=== PATIENT | female | born 1980 | race Caucasian/White ===

== ENCOUNTER 2016-11-22 14:30 | Emergency (ER) | payer MEDICAID ==
[2016-11-22] MEDS ORDERED: Lidocaine 2% Viscous Solution 15 ML Cup PO ONE (14:55)
[2016-11-22] MEDS ORDERED: Benzocaine 20% Topical Spray UD MUCMEM ONE (14:55)
--- NOTE | 2016-11-22 14:59 | EDM.PDOC ---
ED HPI GENERAL MEDICAL PROBLEM - General Chief Complaint: General Stated Complaint: POSSIBLY INFECTION IN MOUTH Time Seen by Provider: 11/22/16 14:45 Source of Information: Reports: Patient History Limitations: Reports: No Limitations - History of Present Illness INITIAL COMMENTS - FREE TEXT/NARRATIVE: HISTORY AND PHYSICAL: History of present illness: [Patient comes to the emergency room complaining of dental pain that has been present for the past couple of days. She complains of swelling and pain to her right cheek. Has a history of abscessed teeth and dental caries and infections. Has been unable to afford the cost of a dental appointment. She's been taking Aleve without any improvement of her symptoms. She denies fever and chills. No sore throat headache or eye pain. No chest pain shortness of breath or difficulty breathing. She does not smoke cigarettes but admits to smoking marijuana regularly. Review of systems: As per history of present illness and below otherwise all systems reviewed and negative. Past medical history: As per history of present illness and as reviewed below otherwise noncontributory. Surgical history: As per history of present illness and as reviewed below otherwise noncontributory. Social history: No reported history of drug or alcohol abuse. Family history: As per history of present illness and as reviewed below otherwise noncontributory. Physical exam: HEENT: Atraumatic, normocephalic. TMs are pearly jordan and without erythema bilaterally. Nares are patent, no erythema. Oral mucous membranes are pink and moist. Area of swelling and erythema above tooth #12, abscess is appreciated. Lungs: Clear to auscultation, breath sounds equal bilaterally. Heart: S1S2. Neuro: Exam nonfocal. Impression: [Dental abscess] Plan: [Dental balls given in the ER. Rx sent to [facility] for amoxicillin 500 mg #30 sig 1 by mouth 3 times a day 0 refills. Encouraged her to establish with a local dentist for continued care. Alternate Tylenol and ibuprofen as needed for continued discomfort. She is in agreement with today's plan.] Definitive disposition and diagnosis as appropriate pending reevaluation and review of above. Dental Pain Score (Numeric/FACES): 10 - Related Data Allergies Allergy/AdvReac Type Severity Reaction Status Date / Time No Known Allergies Allergy Verified 11/22/16 14:38 Home Meds: Home Meds . [No Known Home Meds] 11/22/16 [History] Past Medical History - Past Health History Medical/Surgical History: Denies Medical/Surgical History Social & Family History - Family History Family Medical History: Noncontributory - Tobacco Use Smoking Status *Q: Never Smoker - Recreational Drug Use Recreational Drug Use: Yes Drug Use in Last 12 Months: Yes Recreational Drug Type: Reports: Marijuana/Hashish Recreational Drug Use Frequency: Daily ED ROS GENERAL - Review of Systems Review Of Systems: ROS reveals no pertinent complaints other than HPI. ED EXAM, GENERAL - Physical Exam Exam: See Below Course - Vital Signs Last Recorded V/S: Last Vital Signs Temp 97.4 F 11/22/16 14:38 Pulse 78 11/22/16 15:16 Resp 18 11/22/16 15:16 BP 122/87 11/22/16 15:16 Pulse Ox 97 11/22/16 15:16 - Orders/Labs/Meds Meds: Medications Discontinued Medications Generic Name Dose Route Start Last Admin Trade Name Freq PRN Reason Stop Dose Admin Benzocaine 2 each 11/22/16 14:55 11/22/16 15:15 Hurricaine One 20% MUCMEM 11/22/16 14:56 2 each ONETIME ONE Administration Lidocaine HCl 15 ml 11/22/16 14:55 11/22/16 15:16 Xylocaine 2% Viscous PO 11/22/16 14:56 15 ml ONETIME ONE Administration Departure - Departure Time of Disposition: 15:00 Disposition: Home, Self-Care 01 Condition: Good Clinical Impression: Dental abscess - Discharge Information Instructions: Dental Abscess, [id number] Referrals: PCP,None [Primary Care Provider] - Forms: ED Department Discharge Additional Instructions: The following information is given to patients seen in the emergency department who are being discharged to home. This information is to outline your options for follow-up care. We provide all patients seen in our emergency department with a follow-up referral. The need for follow-up, as well as the timing and circumstances, are variable depending upon the specifics of your emergency department visit. If you don't have a primary care physician on staff, we will provide you with a referral. We always advise you to contact your personal physician following an emergency department visit to inform them of the circumstance of the visit and for follow-up with them and/or the need for any referrals to a consulting specialist. The emergency department will also refer you to a specialist when appropriate. This referral assures that you have the opportunity for follow-up care with a specialist. All of these measure are taken in an effort to provide you with optimal care, which includes your follow-up. Under all circumstances we always encourage you to contact your private physician who remains a resource for coordinating your care. When calling for follow-up care, please make the office aware that this follow-up is from your recent emergency room visit. If for any reason you are refused follow-up, please contact the [facility] emergency department at and asked to speak to the emergency department charge nurse. See list of local dentists. Follow-up with a local dentist within the next 4-5 days. Orajel is available at [facility] [id number] he may use this as needed for dental pain. Tylenol alternating with ibuprofen as needed for discomfort. Follow packaging instructions for dosing information. Return to ER as needed as discussed.
[2016-11-22 18:06] VITALS: BP 122/87
== END 2016-11-22 15:16 | disposition home or self-care (01) ==
LOC: MW.ED 14:30
DX: K04.7 Periapical abscess without sinus (principal)
CPT/HCPCS: 99282; A9270; 99283

== ENCOUNTER 2016-12-24 14:17 | Emergency (ER) | payer MEDICAID ==
[2016-12-24 14:31] VITALS: BP 110/69
--- NOTE | 2016-12-24 14:36 | EDM.PDOC ---
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 Past medical history: As per history of present illness and as reviewed below otherwise noncontributory. Surgical history: As per history of present illness and as reviewed below otherwise noncontributory. Social history: No reported history of drug or alcohol abuse. Family history: As per history of present illness and as reviewed below otherwise noncontributory. Physical exam: Alert and oriented female answering questions appropriately she is nontoxic in appearance. HEENT: Atraumatic, normocehpalic, pupils reactive, negative for conjunctival pallor or scleral icterus, mucous membranes moist, throat clear, neck supple, nontender, trachea midline. Lungs: Clear to auscultation, breath sounds equal bilaterally, chest non tender. Heart: S1S2, regular, negative for clicks, rubs, or JVD. Abdomen: Soft, nondistended, nontender. Negative for masses or hepatossplenmegaly. Negative for costovertebral tenderness. Pelvis: Stable nontender. Genitourinary: Deferred. Rectal: Deferred Extremities: Atraumatic, negative for cords or calf pain. Tenderness and mild edema noted to the medial right knee. Walks without any difficulty. Positive Tinel's and positive Phalen's after 30 seconds Neurovascular unremarkable. Neuro: Awake, alert, oriented. Cranial nerves II through XII unremarkable. Cerebellum unremarkable. Motor and sensory unremarkable throughout. Exam nonfocal. Diagnostics: [Phalen's maneuver Tinel's] Therapeutics: [] Impression: [Bilateral carpal tunnel syndrome] Plan: [Refer to Dr. Cori England for further workup Continue with anti-inflammatories Cockup wrist splints will be applied] Definitive disposition and diagnosis as appropriate pending reevaluation and review of above. Onset: Today, Sudden Quality: Reports: Ache, Throbbing Severity: Severe Improves with: Reports: None Worsens with: Reports: Movement Generalized Pain Score (Numeric/FACES): 5 - Related Data Allergies Allergy/AdvReac Type Severity Reaction Status Date / Time No Known Allergies Allergy Verified 12/24/16 14:34 Home Meds: Home Meds . [No Known Home Meds] 11/22/16 [History] Past Medical History - Past Health History Medical/Surgical History: Denies Medical/Surgical History Social & Family History - Family History Family Medical History: Noncontributory - Tobacco Use Smoking Status *Q: Never Smoker - Recreational Drug Use Recreational Drug Use: Yes Drug Use in Last 12 Months: Yes Recreational Drug Type: Reports: Marijuana/Hashish Recreational Drug Use Frequency: Daily ED ROS GENERAL - Review of Systems Review Of Systems: ROS reveals no pertinent complaints other than HPI. ED EXAM, GENERAL - Physical Exam Exam: See Below Course - Vital Signs Last Recorded V/S: Last Vital Signs Temp 36.4 C 12/24/16 14:30 Pulse 88 12/24/16 14:30 Resp 18 12/24/16 14:30 BP 110/69 12/24/16 14:30 Pulse Ox 98 12/24/16 14:30 Departure - Departure Time of Disposition: 14:56 Disposition: Home, Self-Care 01 Condition: Good Clinical Impression: Carpal tunnel syndrome on both sides - Discharge Information Referrals: PCP,None [Primary Care Provider] - Juliana England MD [Physician] - Additional Instructions: The following information is given to patients seen in the emergency department who are being discharged to home. This information is to outline your options for follow-up care. We provide all patients seen in our emergency department with a follow-up referral. The need for follow-up, as well as the timing and circumstances, are variable depending upon the specifics of your emergency department visit. If you don't have a primary care physician on staff, we will provide you with a referral. We always advise you to contact your personal physician following an emergency department visit to inform them of the circumstance of the visit and for follow-up with them and/or the need for any referrals to a consulting specialist. The emergency department will also refer you to a specialist when appropriate. This referral assures that you have the opportunity for followup care with a specialist. All of these measure are taken in an effort to provide you with optimal care, which includes your followup. Under all circumstances we always encourage you to contact your private physician who remains a resource for coordinating your care. When calling for followup care, please make the office aware that this follow-up is from your recent emergency room visit. If for any reason you are refused follow-up, please contact the [facility] emergency department at and asked to speak to the emergency department charge nurse. Note will be given to be off work Follow-up with referral to Dr. Cori England [facility] Specialty Care - Plastic Surgery Professional Building [address] [place] [address], [address] [place] [address] Please call for an appointment Splints have been applied to your wrists please keep these on at night
== END 2016-12-24 15:11 | disposition home or self-care (01) ==
LOC: MW.ED 14:17
DX: G56.03 Carpal tunnel syndrome, bilateral upper limbs (principal)
CPT/HCPCS: 99282; 99283

== ENCOUNTER 2017-06-30 12:21 | Emergency (ER) | payer MEDICAID ==
[2017-06-30] MEDS ORDERED: Pantoprazole 40 MG Vial IVPUSH ONE (12:41)
[2017-06-30] MEDS ORDERED: Sodium Chloride 0.9% 1,000 ML IV ONE (12:41)
[2017-06-30] MEDS ORDERED: Alum Hydrox/Mag Hydrox/Simeth 15 ML, Metoclopramide 5 MG, Lidocaine 2% 5 ML PO ONE ×3 (12:42)
[2017-06-30] MEDS ORDERED: Sodium Chloride 0.9% 10 ML Syringe FLUSH PRN (12:42)
[2017-06-30] MEDS ORDERED: Sodium Chloride 0.9% 2.5 ML Syringe FLUSH PRN (12:42)
[2017-06-30 12:44] VITALS: BP 139/91
--- NOTE | 2017-06-30 12:44 | EDM.PDOC ---
<KavyaJames Doss - Last Filed: 06/30/17 12:42> ED HPI GENERAL MEDICAL PROBLEM - General Chief Complaint: Gastrointestinal Problem Stated Complaint: ABDOMINAL PAIN Time Seen by Provider: 06/30/17 12:38 - History of Present Illness INITIAL COMMENTS - FREE TEXT/NARRATIVE: HISTORY AND PHYSICAL: History of present illness: Patient 37-year-old white female presents with concern of abdominal pain has been over last week she states this is quite severe and occurs after eating she states she's also had dark stools she denies vomiting denies chest pain shortness of breath she denies any prior abdominal surgery she is a smoker she denies alcohol abuse or drugs Review of systems: As per history of present illness and below otherwise all systems reviewed and negative. Past medical history: As per history of present illness and as reviewed below otherwise noncontributory. Surgical history: As per history of present illness and as reviewed below otherwise noncontributory. Social history: No reported history of drug or alcohol abuse. Family history: As per history of present illness and as reviewed below otherwise noncontributory. Physical exam: HEENT: Atraumatic, normocephalic, pupils reactive, negative for conjunctival pallor or scleral icterus, mucous membranes moist, throat clear, neck supple, nontender, trachea midline. Lungs: Clear to auscultation, breath sounds equal bilaterally, chest nontender. Heart: S1S2, regular, negative for clicks, rubs, or JVD. Abdomen: Soft, nondistended, no localized tenderness no rebound no guarding. Negative for masses or hepatosplenomegaly. Negative for costovertebral tenderness. Pelvis: Stable nontender. Genitourinary: Deferred. Rectal: Deferred. Extremities: Atraumatic, negative for cords or calf pain. Neurovascular unremarkable. Neuro: Awake, alert, oriented. Cranial nerves II through XII unremarkable. Cerebellum unremarkable. Motor and sensory unremarkable throughout. Exam nonfocal. Diagnostics: CBC CMP lipase hCG chest x-ray type and screen ultrasound right upper quadrant Therapeutics: Saline 1 L bolus Protonix 80 mg IV GI cocktail Impression: #1 abdominal pain Definitive disposition and diagnosis as appropriate pending reevaluation and review of above. - Related Data Allergies Allergy/AdvReac Type Severity Reaction Status Date / Time No Known Allergies Allergy Verified 06/30/17 12:44 Home Meds: Home Meds Citalopram Hydrobromide [Celexa] 06/30/17 [History] busPIRone [Buspar] 06/30/17 [History] Past Medical History - Past Health History Medical/Surgical History: Denies Medical/Surgical History Social & Family History - Family History Family Medical History: Noncontributory - Tobacco Use Smoking Status *Q: Never Smoker Second Hand Smoke Exposure: No - Caffeine Use Caffeine Use: Reports: Coffee - Alcohol Use Days Per Week of Alcohol Use: 1 Number of Drinks Per Day: 10 Total Drinks Per Week: 10 - Recreational Drug Use Recreational Drug Use: Yes Drug Use in Last 12 Months: Yes Recreational Drug Type: Reports: Marijuana/Hashish Recreational Drug Use Frequency: Daily ED ROS GENERAL - Review of Systems Review Of Systems: ROS reveals no pertinent complaints other than HPI. ED EXAM, GENERAL - Physical Exam Exam: See Below (See dictation) Course - Vital Signs Last Recorded V/S: Last Vital Signs Temp 98.0 F 06/30/17 12:42 Pulse 71 06/30/17 12:42 Resp 22 H 06/30/17 12:42 BP 139/91 H 06/30/17 12:42 Pulse Ox 100 06/30/17 12:42 - Orders/Labs/Meds Orders: Active Orders 24 hr Category Date Time Status Abdomen Ltd [US] Stat Exams 06/30/17 12:41 Taken Chest 1V Frontal [CR] Stat Exams 06/30/17 12:41 Taken Sodium Chloride 0.9% [Saline Flush] Med 06/30/17 12:42 Active 10 ml FLUSH ASDIRECTED PRN Sodium Chloride 0.9% [Saline Flush] Med 06/30/17 12:42 Active 2.5 ml FLUSH ASDIRECTED PRN Saline Lock Insert [OM.PC] Stat Oth 06/30/17 12:41 Ordered Medication Orders Sodium Chloride (Saline Flush) 10 ml FLUSH ASDIRECTED PRN PRN Reason: Keep Vein Open Last Admin: 06/30/17 13:28 Dose: 10 ml Sodium Chloride (Saline Flush) 2.5 ml FLUSH ASDIRECTED PRN PRN Reason: Keep Vein Open Last Admin: 06/30/17 13:28 Dose: 2.5 ml Labs: Laboratory Tests 06/30/17 06/30/17 06/30/17 Range/Units 13:15 13:15 13:15 WBC 12.60 H (4.0-11.0) K/uL RBC 4.68 (4.30-5.90) M/uL Hgb 14.9 (12.0-16.0) g/dL Hct 43.9 (36.0-46.0) % MCV 93.8 (80.0-98.0) fL MCH 31.8 (27.0-32.0) pg MCHC 33.9 (31.0-37.0) g/dL RDW Std Deviation 45.4 (28.0-62.0) fl RDW Coeff of Anabella 13 (11.0-15.0) % Plt Count 268 (150-400) K/uL MPV 9.30 (7.40-12.00) fL Neut % (Auto) 69.3 (48.0-80.0) % Lymph % (Auto) 17.7 (16.0-40.0) % Newberry % (Auto) 4.5 (0.0-15.0) % Eos % (Auto) 8.3 H (0.0-7.0) % Baso % (Auto) 0.2 (0.0-1.5) % Neut # (Auto) 8.7 H (1.4-5.7) K/uL Lymph # (Auto) 2.2 (0.6-2.4) K/uL Newberry # (Auto) 0.6 (0.0-0.8) K/uL Eos # (Auto) 1.0 H (0.0-0.7) K/uL Baso # (Auto) 0.0 (0.0-0.1) K/uL Nucleated RBC % 0.0 /100WBC Nucleated RBCs # 0 K/uL INR 1.08 Sodium 138 (136-145) mmol/L Potassium 4.5 (3.5-5.1) mmol/L Chloride 102 (98-107) mmol/L Carbon Dioxide 27.2 (21.0-32.0) mmol/L BUN 11 (7.0-18.0) mg/dL Creatinine 0.6 (0.6-1.0) mg/dL Est Cr Clr Drug Dosing 117.76 mL/min Estimated GFR (MDRD) > 60.0 ml/min Glucose 98 (74-106) mg/dL Calcium 8.9 (8.5-10.1) mg/dL Total Bilirubin 0.3 (0.2-1.0) mg/dL AST 20 (15-37) IU/L ALT 22 (14-63) IU/L Alkaline Phosphatase 82 (46-116) U/L Total Protein 7.5 (6.4-8.2) g/dL Albumin 4.0 (3.4-5.0) g/dL Globulin 3.5 (2.0-3.5) g/dL Albumin/Globulin Ratio 1.1 L (1.3-2.8) Lipase 178 (73-393) U/L HCG, Qual (NEG) Blood Type Antibody Screen 06/30/17 06/30/17 Range/Units 13:15 13:15 WBC (4.0-11.0) K/uL RBC (4.30-5.90) M/uL Hgb (12.0-16.0) g/dL Hct (36.0-46.0) % MCV (80.0-98.0) fL MCH (27.0-32.0) pg MCHC (31.0-37.0) g/dL RDW Std Deviation (28.0-62.0) fl RDW Coeff of Anabella (11.0-15.0) % Plt Count (150-400) K/uL MPV (7.40-12.00) fL Neut % (Auto) (48.0-80.0) % Lymph % (Auto) (16.0-40.0) % Newberry % (Auto) (0.0-15.0) % Eos % (Auto) (0.0-7.0) % Baso % (Auto) (0.0-1.5) % Neut # (Auto) (1.4-5.7) K/uL Lymph # (Auto) (0.6-2.4) K/uL Newberry # (Auto) (0.0-0.8) K/uL Eos # (Auto) (0.0-0.7) K/uL Baso # (Auto) (0.0-0.1) K/uL Nucleated RBC % /100WBC Nucleated RBCs # K/uL INR Sodium (136-145) mmol/L Potassium (3.5-5.1) mmol/L Chloride (98-107) mmol/L Carbon Dioxide (21.0-32.0) mmol/L BUN (7.0-18.0) mg/dL Creatinine (0.6-1.0) mg/dL Est Cr Clr Drug Dosing mL/min Estimated GFR (MDRD) ml/min Glucose (74-106) mg/dL Calcium (8.5-10.1) mg/dL Total Bilirubin (0.2-1.0) mg/dL AST (15-37) IU/L ALT (14-63) IU/L Alkaline Phosphatase (46-116) U/L Total Protein (6.4-8.2) g/dL Albumin (3.4-5.0) g/dL Globulin (2.0-3.5) g/dL Albumin/Globulin Ratio (1.3-2.8) Lipase (73-393) U/L HCG, Qual NEGATIVE (NEG) Blood Type A POSITIVE Antibody Screen NEGATIVE Meds: Medications Generic Name Dose Route Start Last Admin Trade Name Freq PRN Reason Stop Dose Admin Sodium Chloride 10 ml 06/30/17 12:42 06/30/17 13:28 Saline Flush FLUSH 10 ml ASDIRECTED PRN Administration Keep Vein Open Sodium Chloride 2.5 ml 06/30/17 12:42 06/30/17 13:28 Saline Flush FLUSH 2.5 ml ASDIRECTED PRN Administration Keep Vein Open Discontinued Medications Generic Name Dose Route Start Last Admin Trade Name Joseq PRN Reason Stop Dose Admin Al Hydroxide/Mg Hydroxide 15 0 ml 06/30/17 12:42 06/30/17 13:25 ml/ Metoclopramide HCl 5 mg/ PO 06/30/17 12:43 25 each Lidocaine HCl 5 ml ONETIME ONE Administration Sodium Chloride 1,000 mls @ 999 mls/hr 06/30/17 12:41 06/30/17 13:26 Normal Saline IV 06/30/17 13:41 999 mls/hr STAT ONE Administration Pantoprazole Sodium 80 mg 06/30/17 12:41 06/30/17 13:25 Protonix Iv IVPUSH 06/30/17 12:42 80 mg .BOLUS ONE Administration Departure - Departure Disposition: Home, Self-Care 01 Clinical Impression: Abdominal pain - Discharge Information Instructions: Abdominal Pain, Adult, [id number] Referrals: PCP,None [Primary Care Provider] - Forms: ED Department Discharge Additional Instructions: My general discharge The following information is given to patients seen in the emergency department who are being discharged to home. This information is to outline your options for follow-up care. We provide all patients seen in our emergency department with a follow-up referral. The need for follow-up, as well as the timing and circumstances, are variable depending upon the specifics of your emergency department visit. If you don't have a primary care physician on staff, we will provide you with a referral. We always advise you to contact your personal physician following an emergency department visit to inform them of the circumstance of the visit and for follow-up with them and/or the need for any referrals to a consulting specialist. The emergency department will also refer you to a specialist when appropriate. This referral assures that you have the opportunity for follow-up care with a specialist. All of these measure are taken in an effort to provide you with optimal care, which includes your follow-up. Under all circumstances we always encourage you to contact your private physician who remains a resource for coordinating your care. When calling for follow-up care, please make the office aware that this follow-up is from your recent emergency room visit. If for any reason you are refused follow-up, please contact the [facility] Emergency Department at and asked to speak to the emergency department charge nurse. [facility] Specialty Care - General Surgery Professional Building [address] [place] [address], [address] [place] [address] 1. Protonix has been prescribed for you. 2. Please follow-up with the general surgeon next week. Return to the ED as needed and as discussed. <Shey Wooten E - Last Filed: 06/30/17 15:47> Departure - Departure Time of Disposition: 15:46
[2017-06-30 14:26] LABS: CHLORIDE,CL 102 mmol/L (98-107); SODIUM,NA 138 mmol/L (136-145)
--- NOTE | 2017-07-01 10:24 | US ---
EXAM DATE: 06/30/17 PATIENT'S AGE: 37 Patient: YANELY DILLARD Facility: [place], [place] Site . Site : 1980 Study: US Abdomen [id number] 2:16:08 PM Ordering Physician: Kavya Ramirez Final Report: INDICATION: Right upper quadrant pain COMPARISON: none TECHNIQUE: Real time jordan scale imaging and color Doppler analysis was performed of the right upper quadrant. FINDINGS: The patient`s liver is of normal size and has uniform echogenicity. There is a normal appearance of the hepatic IVC and proximal abdominal aorta. There is no evidence of ascites. The pancreas appears normal. The gallbladder is of normal size and there is no evidence of intraluminal stones or sludge. The gallbladder wall measures 1.6 mm in thickness. Although there is no evidence of edema within the gallbladder wall, the rug cutter commented the patient was focally tender over the gallbladder during the exam. The common bile duct is of normal size and measures 5 mm in diameter at the level of the jayesh hepatis. The right kidney measures 12.8 cm in length. There is no evidence of a stone or hydronephrosis within the right kidney. IMPRESSION: Gallbladder tenderness but without evidence of cholelithiasis or edema within the gallbladder wall. Findings could suggest potential acalculous cholecystitis. Consider radionuclide hepatobiliary imaging for further evaluation. Dictated by James Mcgrath MD @ Jun 30 2017 2:31PM (Electronic Signature) Report Signed by Proxy. RONEL
--- NOTE | 2017-07-01 10:27 | CR ---
EXAM DATE: 06/30/17 PATIENT'S AGE: 37 Patient: YANELY DILLADR Facility: [place], [place] Site . Site : 1980 Study: XRay Chest [id number] 2:19:59 PM Ordering Physician: Kavya Ramirez Final Report: Indication: Diffuse abdominal pain Technique: Chest 1 view Comparison: None Findings/Impression: Cardiovascular and mediastinum: Heart size and vasculature are normal in caliber and appearance. Mediastinum is within normal limits. Lungs and pleural space: Lungs are clear. No sign of infiltrate or mass. No sign of pleural effusion. No pneumothorax. Bones and soft tissues: No significant findings. Dictated by Yas Alcantara MD @ Jun 30 2017 2:37PM (Electronic Signature) Report Signed by Proxy. RONEL
== END 2017-06-30 16:09 | disposition home or self-care (01) ==
LOC: MW.ED 12:21
DX: R10.9 Unspecified abdominal pain (principal)
CPT/HCPCS: 36415; 71045; 76705; 80053; 83690; 84703; 85025; 85610; 86850; 86900; 86901; 96361; 96374; 99283; A9270; C9113; J7040

== ENCOUNTER 2017-07-23 11:37 | Day surgery (SDC) | payer MEDICAID ==
[~2017-07-23 11:37] MED LIST: Lactated Ringers 1,000 ML IV SCH; Lidocaine 2% 5 ML SDV ONE; Propofol 200 MG/20 ML SDV ONE
--- NOTE | 2017-07-23 12:13 | PCM.PREANE ---
Preanesthetic Assessment - Anesthesia/Transfusion/Family Hx Anesthesia History: Prior Anesthesia Without Reaction Family History of Anesthesia Reaction: No Transfusion History: No Prior Transfusion(s) Intubation History: Unknown - Review of Systems General: No Symptoms Pulmonary: No Symptoms Cardiovascular: No Symptoms Gastrointestinal: Abdominal Pain Neurological: No Symptoms Other: Reports: None - Physical Assessment O2 Sat by Pulse Oximetry: 96 Respiratory Rate: 16 Vital Signs: Last Vital Signs Temp 36.8 C 07/23/17 11:54 Pulse 68 07/23/17 11:54 Resp 16 07/23/17 11:54 BP 95/54 L 07/23/17 11:54 Pulse Ox 96 07/23/17 11:54 Height: 1.65 m Weight: 107.955 kg ASA Class: 2 Mental Status: Alert & Oriented x3 Airway Class: Mallampati = 2 Dentition: Reports: Normal Dentition, [place](s) (x2 upper front) Thyro-Mental Finger Breadths: 3 Mouth Opening Finger Breadths: 3 ROM/Head Extension: Full Lungs: Clear to Auscultation, Normal Respiratory Effort Cardiovascular: Regular Rate, Regular Rhythm - Allergies Allergies/Adverse Reactions: Allergies Allergy/AdvReac Type Severity Reaction Status Date / Time No Known Allergies Allergy Verified 07/19/17 14:02 - Blood Blood Available: No - Anesthesia Plan Pre-Op Medication Ordered: None - Acknowledgements Anesthesia Type Planned: MAC Pt an Appropriate Candidate for the Planned Anesthesia: Yes Alternatives and Risks of Anesthesia Discussed w Pt/Guardian: Yes Pt/Guardian Understands and Agrees with Anesthesia Plan: Yes PreAnesthesia Questionnaire - Past Health History Medical/Surgical History: Denies Medical/Surgical History HEENT History: Reports: Other (See Below) Other HEENT History: wears glasses Gastrointestinal History: Reports: GERD Genitourinary History: Reports: Renal Calculus 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: Psychiatric History: Reports: Anxiety, Depression Endocrine/Metabolic History: Reports: Obesity/BMI 30+ - Infectious Disease History Infectious Disease History: Reports: Chicken Pox - Past Surgical History Head Surgeries/Procedures: Reports: None GI Surgical History: Reports: Other (See Below) Other GI Surgeries/Procedures: hx excision of pilonidal cyst Female Surgical History: Reports: Hysterectomy (with ablation), Lithotripsy/ ESWL, Tubal Ligation - SUBSTANCE USE Smoking Status *Q: Light Tobacco Smoker Tobacco Use Within Last Twelve Months: Cigarettes Second Hand Smoke Exposure: No Days Per Week of Alcohol Use: 1 Number of Drinks Per Day: 10 Total Drinks Per Week: 10 Recreational Drug Use History: Yes Recreational Drug Type: Reports: Other (see below) (h/o multiple drug abuses, 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) - HOME MEDS Home Medications: Home Meds Citalopram Hydrobromide [Celexa] 10 mg PO DAILY 06/30/17 [History] Pantoprazole Sodium [Protonix] 40 mg PO BID 07/19/17 [History] cloNIDine HCl [Catapres] 0.2 mg PO BID 07/19/17 [History] - CURRENT (IN HOUSE) MEDS Current Meds: Current Medications Lactated Ringer's (Ringers, Lactated) 1,000 mls @ 125 mls/hr IV ASDIRECTED [facility] Last Admin: 07/23/17 11:56 Dose: 125 mls/hr Discontinued Medications Lidocaine (Xylocaine-Mpf 2%) Confirm Administered Dose 5 ml .ROUTE .STK-MED ONE Stop: 07/23/17 08:15 Propofol (Diprivan 20 Ml) Confirm Administered Dose 400 mg .ROUTE .STK-MED ONE Stop: 07/23/17 08:15
--- NOTE | 2017-07-23 13:24 | PCM.OPNOTE ---
- General Post-Op/Procedure Note Date of Surgery/Procedure: 07/23/17 Operative Procedure(s): Esophagogastroduodenoscopy w/ biopsy Pre Op Diagnosis: Epigastric pain Post-Op Diagnosis: Gastritis Anesthesia Technique: MAC (ASA II) Primary Surgeon: Mahad Barrera Condition: Good Free Text/Narrative:: Dictation [id number] CPT CODE [id number]
[2017-07-23] MEDS ORDERED: Lactated Ringers 1,000 ML IV SCH (13:30)
--- NOTE | 2017-07-23 13:41 | PCM48HPAN ---
Post Anesthesia Note - EVALUATION WITHIN 48HRS OF ANESTHETIC Vital Signs in Normal Range: Yes Patient Participated in Evaluation: Yes Respiratory Function Stable: Yes Airway Patent: Yes Cardiovascular Function Stable: Yes Hydration Status Stable: Yes Pain Control Satisfactory: Yes Nausea and Vomiting Control Satisfactory: Yes Mental Status Recovered: Yes Resp Rate: 16 - COMMENTS/OBSERVATIONS Free Text/Narrative:: Pt alert/oriented. Bypassed phase 1 recovery. Denies questions or concerns regarding anesthetic.
[2017-07-23 13:57] VITALS: BP 96/55
--- NOTE | 2017-07-26 11:12 | OR ---
SURGEON: Mahad Barrera M.D. DATE OF PROCEDURE: 07/23/2017 OPERATION PERFORMED: Esophagogastroduodenoscopy with biopsy. ANESTHESIA: MAC. ASA CLASSIFICATION: II. PREOPERATIVE DIAGNOSIS: Persistent abdominal pain with fatty food intolerance. POSTOPERATIVE DIAGNOSIS: [id number] acute gastritis without ulceration. DESCRIPTION OF PROCEDURE: The patient was taken to the endoscopy room, positioned on the endoscopy table in the supine position. Time-out was called for appropriate identification of the patient and procedure. Monitored anesthesia care was provided. The bite block was placed between the patient's teeth. The gastroscope was inserted through the bite block into the oropharynx and advanced without difficulty through the esophagus and stomach into the duodenum, where examination was carried out in a retrograde fashion. The duodenum shows no acute inflammatory changes or ulcerations. The stomach does show [id number] gastritis. Antral biopsies were obtained to look for the presence of Helicobacter pylori. The gastroscope was then retroflexed to visualize the proximal stomach. There was also an area of inflammatory change in the upper greater curvature. Separate biopsies of this area were obtained. No ulcerations were noted. The gastroscope was then straightened and slowly withdrawn aspirating the stomach. The GE junction is well-defined and shows no acute inflammatory changes or ulcerations. The esophagus demonstrated good contractility. No mid or proximal lesions were identified as the scope was withdrawn. Vocal cords were briefly visualized and noted to move symmetrically. The gastroscope was then removed with the patient having tolerated the procedure well. She was subsequently taken to recovery room in satisfactory condition. JEANNE / MARLENA /[id number]
== END 2017-07-23 13:55 | disposition home or self-care (01) ==
LOC: MW.SDS 11:37
PROVIDERS: ATTEND Surgery
DX: K29.50 Unspecified chronic gastritis without bleeding (principal); Z79.899 Other long term (current) drug therapy
CPT/HCPCS: 36415; 43239; 84703; 88305; 88312; J7120; J2704

== ENCOUNTER 2021-03-10 09:09 | Emergency (ER) | payer MEDICAID, OTHER, SELFPAY ==
[2021-03-10 09:28] VITALS: PULSE 98
--- NOTE | 2021-03-10 09:42 | EDM.PDOC ---
ED HPI GENERAL MEDICAL PROBLEM - General Chief Complaint: Respiratory Problem Stated Complaint: ear ache, light sensitivity Time Seen by Provider: 03/10/21 09:19 Source of Information: Reports: Patient History Limitations: Reports: No Limitations - History of Present Illness INITIAL COMMENTS - FREE TEXT/NARRATIVE: Patient is a 41-year-old female who presents today for multiple complaints. Patient's been having some sinus pain and thick nasal discharge for the past 2 weeks. She also reports some diffuse body aches as well. She denies any cough or shortness of breath chest or abdominal pain. She also concerned she has been having an regular periods when she was on control and she stopped them she does not want to start them again because they made her angry and cry at times. States she had a tubes tied and was also want to know why she was to have them. Patient explained why it is worse. Currently has no other complaints at the moment. Lower Abdomen Pain Score (Numeric/FACES): 8 - Related Data Allergies Allergy/AdvReac Type Severity Reaction Status Date / Time buspirone [From BuSpar] Allergy Stomach Verified 03/10/21 09:28 Upset Home Meds: Home Meds Amoxicillin/Clavulanate K [Augmentin 875-125 MG] 1 tab PO BID 7 Days #14 tablet 03/10/21 [Rx] Methylphenidate HCl [Methylphenidate ER] 36 mg PO 03/10/21 [History] Topiramate [Topamax] 50 mg PO BID 03/10/21 [History] Zolpidem Tartrate [Ambien] 10 mg PO BEDTIME 03/10/21 [History] clonazePAM [Klonopin] 1 mg PO ASDIRECTED 03/10/21 [History] Past Medical History - Past Health History Medical/Surgical History: Denies Medical/Surgical History HEENT History: Reports: Other (See Below) Other HEENT History: wears glasses Gastrointestinal History: Reports: GERD Genitourinary History: Reports: Renal Calculus [employer] History: Reports: Psychiatric History: Reports: Anxiety, Depression Endocrine/Metabolic History: Reports: Obesity/BMI 30+ - Infectious Disease History Infectious Disease History: Reports: Chicken Pox - Past Surgical History Head Surgeries/Procedures: Reports: None GI Surgical History: Reports: Other (See Below) Other GI Surgeries/Procedures: hx excision of pilonidal cyst Female Surgical History: Reports: Hysterectomy, Lithotripsy/ESWL, Tubal Ligation Social & Family History - Family History Family Medical History: No Pertinent Family History - Caffeine Use Caffeine Use: Reports: Coffee ED ROS GENERAL - Review of Systems Review Of Systems: See Below Constitutional: Reports: No Symptoms HEENT: Reports: Sinus Problem Respiratory: Reports: No Symptoms Cardiovascular: Reports: No Symptoms Endocrine: Reports: No Symptoms GI/Abdominal: Reports: No Symptoms : Reports: No Symptoms Musculoskeletal: Reports: No Symptoms Skin: Reports: No Symptoms Neurological: Reports: No Symptoms Psychiatric: Reports: No Symptoms Hematologic/Lymphatic: Reports: No Symptoms Immunologic: Reports: No Symptoms ED EXAM, GENERAL - Physical Exam Exam: See Below Exam Limited By: No Limitations General Appearance: Alert, WD/WN, No Apparent Distress Eye Exam: Bilateral Eye: EOMI, PERRL Head: Atraumatic, Normocephalic. No: Sinus Tenderness Neck: Normal Inspection, Supple, Non-Tender Respiratory/Chest: No Respiratory Distress, Lungs Clear, Normal Breath Sounds Cardiovascular: Normal Peripheral Pulses, Regular Rate, Rhythm GI/Abdominal: Normal Bowel Sounds, Soft, Non-Tender Extremities: Normal Inspection, Normal Range of Motion Neurological: Alert, Oriented, Normal Cognition, Normal Gait Course - Vital Signs Last Recorded V/S: Last Vital Signs Temp 96.5 F L 03/10/21 09:19 Pulse 98 03/10/21 09:19 Resp 18 03/10/21 09:19 BP 113/81 03/10/21 09:19 Pulse Ox 95 03/10/21 09:19 - Orders/Labs/Meds Labs: Laboratory Tests 03/10/21 Range/Units 09:20 Influenza Type A RNA NEGATIVE (NEGATIVE) Influenza Type B RNA NEGATIVE (NEGATIVE) SARS-CoV-2 RNA (BARBI) NEGATIVE (NEGATIVE) - Re-Assessments/Exams Free Text/Narrative Re-Assessment/Exam: 03/10/21 10:23 Covid test negative patient will be discharged home with antibiotics for sinus infection patient will follow with [facility]ILITATOR for her irregular periods Departure - Departure Time of Disposition: 10:24 Disposition: Home, Self-Care 01 Condition: Good Clinical Impression: Sinusitis - Discharge Information *PRESCRIPTION DRUG MONITORING PROGRAM REVIEWED*: Not Applicable *COPY OF PRESCRIPTION DRUG MONITORING REPORT IN PATIENT CIERA: Not Applicable Prescriptions: Amoxicillin/Clavulanate K [Augmentin 875-125 MG] 1 tab PO BID 7 Days #14 tablet Instructions: Sinusitis, Adult, [id number] Referrals: Gustavo Najera MD [Primary Care Provider] - Forms: ED Department Discharge Additional Instructions: He was seen today for runny nose and discharge we will send you home antibiotics for sinus infection. Recommend you continue to follow-up with BI[employer]ASS FACILITATOR for your irregular periods also your Covid test was negative if you have any other concerning signs or symptoms please feel free to return to the ER otherwise follow-up with primary care physician. The following information is given to patients seen in the emergency department who are being discharged to home. This information is to outline your options for follow-up care. We provide all patients seen in our emergency department with a follow-up referral. The need for follow-up, as well as the timing and circumstances, are variable depending upon the specifics of your emergency department visit. If you don't have a primary care physician on staff, we will provide you with a referral. We always advise you to contact your personal physician following an emergency department visit to inform them of the circumstance of the visit and for follow-up with them and/or the need for any referrals to a consulting specialist. The emergency department will also refer you to a specialist when appropriate. This referral assures that you have the opportunity for follow-up care with a specialist. All of these measure are taken in an effort to provide you with optimal care, which includes your follow-up. Under all circumstances we always encourage you to contact your private physician who remains a resource for coordinating your care. When calling for follow-up care, please make the office aware that this follow-up is from your recent emergency room visit. If for any reason you are refused follow-up, please contact the [facility] Emergency Department at and asked to speak to the emergency department charge nurse. Please follow up with your primary care physician. If you do not have a primary care physician, see below: [facility] [address] [place] [id number] [facility] [address] [place] [address] Sepsis Event Note (ED) - Evaluation Sepsis Screening Result: No Definite Risk - Focused Exam Vital Signs: Vital Signs Temp Pulse Resp BP Pulse Ox 03/10/21 09:19 96.5 F L 98 18 113/81 95 - Assessment/Plan Plan: Patient is a 41-year-old female presents today for sinus pain. Patient has been having some nasal discharge for the past weeks we will treat with amoxicillin. Patient also concerned about her. She does not states she feels tired weak or pale we offered to do a CBC to check hemoglobin patient refusing states she did follow-up with her BIOMASS FACILITATOR as she is already has a prescription for control.
[2021-03-10 10:21] LABS: CORONAVIRUS COVID-19 NAA NEGATIVE (NEGATIVE); INFLUENZA A NAA NEGATIVE (NEGATIVE); INFLUENZA B NAA NEGATIVE (NEGATIVE)
[2021-03-10] MEDS ORDERED: Sodium Chloride 0.9% 2.5 ML Syringe FLUSH PRN (10:58)
[2021-03-10] MEDS ORDERED: Sodium Chloride 0.9% 10 ML Syringe FLUSH PRN (10:58)
[2021-03-10] MEDS ORDERED: Ondansetron 4 MG/2 ML SDV IVPUSH ONE (10:59)
[2021-03-10] MEDS ORDERED: Sodium Chloride 0.9% 1,000 ML IV ONE (10:59)
[2021-03-10 16:53] VITALS: BP 113/70
== END 2021-03-10 10:47 | disposition home or self-care (01) ==
LOC: MW.ED 09:09
DX: J32.9 Chronic sinusitis, unspecified (principal); E66.9 Obesity, unspecified; Z68.26 Body mass index [BMI] 26.0-26.9, adult; Z20.822 Contact with and (suspected) exposure to COVID-19
CPT/HCPCS: 0240U; 99283